=== PATIENT | male | born 1960 | race Caucasian/White ===

== ENCOUNTER → 2017-07-10 | Outpatient (CLI) | payer BC ==
--- NOTE | 2017-07-10 15:41 | US ---
EXAMINATION TYPE: US thyroid st tissue head/neck DATE OF EXAM: 07/10/2017 COMPARISON: 07/14/2016 CLINICAL HISTORY: Nodule E04.1. GLAND SIZE: Right Lobe: 5.7 x 3.1 x 2.9 cm Overall Parenchyma: homogenous Left Lobe: 4.4 x 1.6 x 1.7 cm Overall Parenchyma: homogeneous Isthmus Thickness: 0.4 cm NODULES RIGHT: # of nodules measured on right: 1 1. 4.0 X 2.3 x 3.0 cm mixed nodule at the mid pole with well-defined margins. This nodule is wider than tall and shows intranodular vascularity. Prior size: 3.8 x 2.4 x 2.5 cm LEFT: # of nodules measured on left: 0 ISTHMUS: # of nodules measured in the isthmus: 0 Bilateral neck scanned, no evidence of lymphadenopathy. IMPRESSION: Minimal growth of a complex vascular 4.0 cm right thyroid nodule for which percutaneous biopsy with f ine-needle aspiration is recommended if not previously performed.
== END | disposition home or self-care (01) ==
LOC: RADUSWWP 14:48
PROVIDERS: ATTEND Family Medicine
DX: E04.1 Nontoxic single thyroid nodule (principal)
CPT/HCPCS: 76536

== ENCOUNTER → 2018-04-20 | Outpatient (CLI) | payer BC ==
--- NOTE | 2018-04-20 15:41 | NM ---
EXAMINATION TYPE: NM bone scan whole body DATE OF EXAM: 04/20/2018 COMPARISON: NONE HISTORY: Prostate carcinoma Delayed whole-body scanning was performed following the injection of 21.2 mCi Tc 99m MDP. Images acq uired 3.25 hours post injection. FINDINGS: Soft tissue uptake is normal. There is a mild spinal curvature in the lumbar spine. Uptake within the feet, knees, wrists, shoulders is likely degenerative. Small focus of uptake present at the ischial tuberosity on the right. IMPRESSION: Mild scoliosis. Findings felt more likely to be degenerative. Uptake at the ischial tuberosity could be due to muscle strain or partial tear.
== END | disposition home or self-care (01) ==
LOC: RADNMMAIN 11:37
PROVIDERS: ATTEND Urology
DX: C61 Malignant neoplasm of prostate (principal); M41.86 Other forms of scoliosis, lumbar region; Z88.8 Allergy status to other drugs, medicaments and biological substances
CPT/HCPCS: 78306; A9503

== ENCOUNTER → 2018-04-29 | Outpatient (CLI) | payer BC ==
[2018-04-29 11:56] LABS: Basophils # (A) 0.1 k/uL (0-0.2); Basophils % (A) 1 %; Eosinophils # (A) 0.2 k/uL (0-0.7); Eosinophils % (A) 2 %; HCT 45.5 % (39.0-53.0); HGB 15.5 gm/dL (13.0-17.5); Lymphocytes # (A) 1.5 k/uL (1.0-4.8); Lymphocytes % (A) 22 %; MCH 30.9 pg (25.0-35.0); MCHC 34.1 g/dL (31.0-37.0); MCV 90.6 fL (80.0-100.0); Mean Platelet Volume 7.1; Monocytes # (A) 0.6 k/uL (0-1.0); Monocytes % (A) 8 %; Neutrophils # (A) 4.5 k/uL (1.3-7.7); Neutrophils % (A) 64 %; Platelet Count 211 k/uL (150-450); RBC 5.02 m/uL (4.30-5.90); RDW 13.2 % (11.5-15.5)
[2018-04-29 12:08] LABS: Anion Gap 11 mmol/L; Blood Urea Nitrogen 19 mg/dL (9-20); Calcium 9.8 mg/dL (8.4-10.2); Carbon Dioxide 24 mmol/L (22-30); Chloride 106 mmol/L (98-107); Glucose 106 mg/dL (74-99); Potassium 4.7 mmol/L (3.5-5.1); Sodium 141 mmol/L (137-145)
== END | disposition home or self-care (01) ==
LOC: LABPAT 10:50
PROVIDERS: ATTEND Urology
DX: Z01.818 Encounter for other preprocedural examination (principal); C61 Malignant neoplasm of prostate; E78.00 Pure hypercholesterolemia, unspecified; R35.0 Frequency of micturition; R53.83 Other fatigue; Z01.812 Encounter for preprocedural laboratory examination
CPT/HCPCS: 80048; 85025; 87086; 93005

== ENCOUNTER 2018-05-07 05:49 | Observation (INO) | payer BC ==
[2018-05-03 09:59] VITALS: BMI 25.0
[~2018-05-07 05:49] MED LIST: DEXAMETHASONE SOD PHOSPHATE 10 MG/ML 1 ML VIAL IV ONE; HEPARIN SODIUM,PORCINE 5,000 UNIT/ML 1 ML VIAL SQ ONE; HYDROmorphone 0.5 MG/0.5 ML SYRINGE IVP PRN; MIDAZOLAM 2 MG/2 ML VIAL IV PRN; ONDANSETRON 4 MG/2 ML VIAL IVP ONE; ceFAZolin IN SWFI 2 GM/20 ML SYRINGE IVP ONE; fentaNYL (PF) 50 MCG/ML 2 ML AMP IV PRN
--- NOTE | 2018-05-07 06:25 | P.GSHP ---
History of Present Illness H&P Date: 05/07/18 Chief Complaint: Prostate Cancer The patient is a 57 year old white male with a rising PSA level, most recently 6.3. He underwent a prostate ultrasound with biopsies, revealing Kashif 6 and 7 (3+4) adenocarcinoma in 5 of 12 biopsies. Prostate volume is 40 cc. A bone scan was negative. Alternative treatment options were reviewed, and he has elected to undergo a robotic prostatectomy. He reports mile ED, requiring the use of Cialis. He also reports mild voiding symptoms. - Constitutional Constitutional: Reports chills, Reports chronic headaches, Reports fever - Genitourinary (Male) Genitourinary: Reports erectile dysfunction, Reports urinary frequency - Musculoskeletal Musculoskeletal: Reports low back pain Past Medical History Past Medical History: Cancer, Thyroid Disorder Additional Past Medical History / Comment(s): prostate CA, thyroid nodule rt side, states being watched by at [facility] History of Any Multi-Drug Resistant Organisms: None Reported Past Surgical History: Orthopedic Surgery Additional Past Surgical History / Comment(s): rt knee arthroscopy, colonoscopy , thyroid bx, cosmetic ear sx as child. Past Anesthesia/Blood Transfusion Reactions: No Reported Reaction Smoking Status: Former smoker - Past Family History Mother Family Medical History: Cancer Sister(s) Family Medical History: Cancer Medications and Allergies Home Medications Medication Instructions Recorded Confirmed Type ALPRAZolam [Xanax] 0.5 mg PO DAILY PRN 05/03/18 05/03/18 History Tadalafil [Cialis] 5 mg PO DAILY 05/03/18 05/03/18 History Allergies Allergy/AdvReac Type Severity Reaction Status Date / Time lodine Allergy Itching Uncoded 05/07/18 06:17 Surgical - Exam - General well developed, well nourished, no distress - Neck no masses, trachea midline - Respiratory normal respiratory effort, clear to auscultation - Cardiovascular Rhythm: regular Abnormal Heart Sounds: no systolic murmur, no diastolic murmur - Abdomen Abdomen: soft, non tender, no guarding, no rigid, no rebound - Genitourinary normal penis with no external lesions, testicles non-tender - Rectum Prostate moderately enlarged, smooth. Rectum: normal sphincter tone, no masses - Musculoskeletal normal gait, normal posture - Psychiatric oriented to time, oriented to person, oriented to place, speech is normal, memory intact Assessment and Plan (1) Malignant neoplasm of prostate Current Visit: Yes Status: Acute Code(s): C61 - MALIGNANT NEOPLASM OF PROSTATE SNOMED Code(s): 212546006 Plan: Radical Prostatectomy. The procedure has been reviewed in detail with the patient. I explained that this is a procedure of choice in a healthy male under 70 years of age or in any person who has an expected longevity of greater than 10 years. I explained in great detail the potential risks, which include anesthesia, bleeding, and infection. In addition, I went into great detail concerning the two common complications, ie impotence and urinary incontinence. I explained that other complications include intestinal injury (which may require a colostomy), ureteral injury, swelling of the penis post-operatively, bladder neck contracture, urethral stricture, lymphocele, post-operative ileus, thrombophlebitis, wound separation, and possible urinary fistula. The patient has also been advised of the possibility of treatment failure, and the possible need for adjuvant therapy. Bilateral pelvic lymph node dissections will be performed. He is aware that based upon his biopsy results, he is a suboptimal candidate for neurovascular bundle preservation. A partial nerve-sparing procedure will be performed, but he understands the likelihood of postoperative erectile dysfunction. He has elected to undergo an RALP rather than an open radical retropubic prostatectomy. He understands the possible need to convert this to an open procedure.
[2018-05-07] MEDS: LIDOCAINE 1% 20 ML VIAL (10MG/ML) FOR IV START INTRADERMA PRN ×2 (06:48→06:51)
[2018-05-07] MEDS: LACTATED RINGERS 1,000 ML IV SCH (06:49)
[2018-05-07] MEDS ORDERED: PROPOFOL 10 MG/ML 20 ML VIAL IV ONE (07:42)
[2018-05-07] MEDS ORDERED: NEOSTIGMINE 1 MG/ML 10 ML VIAL ONE (07:42)
[2018-05-07] MEDS ORDERED: SUCCINYLCHOLINE CHLORIDE 100 MG/5 ML SYR IV ONE (07:42)
[2018-05-07] MEDS ORDERED: GLYCOPYRROLATE 0.2 MG/ML 2 ML VIAL ONE (07:42)
[2018-05-07] MEDS ORDERED: fentaNYL (PF) 50 MCG/ML 2 ML AMP ONE (07:42)
[2018-05-07] MEDS ORDERED: ePHEDrine SULFATE/0.9% NACL/PF 50 MG/5 ML SYRINGE IV ONE (07:42)
[2018-05-07] MEDS ORDERED: HYDROmorphone (PF) 1 MG/ML ONE (07:42)
[2018-05-07] MEDS ORDERED: MIDAZOLAM 2 MG/2 ML VIAL ONE (07:42)
[2018-05-07] MEDS ORDERED: ROCURONIUM BROMIDE 10 MG/ML 10 ML VIAL IV ONE (07:42)
[2018-05-07] MEDS ORDERED: BUPIVACAINE (PF) 0.5% 30 ML VIAL SQ ONE ×2 (08:10→12:12)
[2018-05-07] MEDS ORDERED: LACTATED RINGERS 1,000 ML IV ONE (11:30)
[2018-05-07] MEDS ORDERED: ONDANSETRON 4 MG/2 ML VIAL IVP PRN (12:38)
[2018-05-07] MEDS ORDERED: ACETAMINOPHEN TAB 325 MG TAB PO PRN (12:38)
[2018-05-07] MEDS ORDERED: ALPRAZolam 0.5 MG TAB PO PRN (12:38)
[2018-05-07] MEDS ORDERED: KETOROLAC 30 MG/ML 1 ML VIAL IVP PRN (12:38)
[2018-05-07] MEDS ORDERED: MEPERIDINE 50 MG/ML SYRINGE IVP ONE (12:40)
--- NOTE | 2018-05-07 13:00 | P.OP ---
Date of Procedure: 05/07/18 Preoperative Diagnosis: Adenocarcinoma of the Prostate, Clinical Stage [id number] Postoperative Diagnosis: Same Procedure(s) Performed: Robotic-Assisted Laparoscopic Prostatectomy (RALP) with Bilateral Pelvic Lymphadenectomy Anesthesia: CASSI Surgeon: Mayo Mukherjee Seamer Elastic Band #1: Tamera Galdamez Estimated Blood Loss (ml): 50 IV fluids (ml): 1,500 Pathology: other (Prostate, seminal vesicles, bilateral pelvic lymph nodes) Condition: stable Disposition: PACU Indications for Procedure: The patient is a 57 year old white male with a rising PSA level, most recently 6.3. He underwent a prostate ultrasound with biopsies, revealing Kashif 6 and 7 (3+4) adenocarcinoma in 5 of 12 biopsies. Prostate volume is 40 cc. A bone scan was negative. Alternative treatment options were reviewed, and he has elected to undergo a robotic prostatectomy with PLND. Operative Findings: No evidence of extraprostatic disease. Description of Procedure: The patient was taken in the operating room and placed in the dorsal lithotomy position, with his legs supported in Gil stirrups. He was carefully positioned on a beanbag for stability. The abdomen and external genitalia were prepped and draped sterilely. A Dash catheter was inserted. The Veress needle was passed through the anterior abdominal wall immediately cephalad to the umbilicus, and insufflation was performed to a pressure of 20 mm Hg. Once insufflation was performed, the Veress needle was removed and a supraumbilical incision was made, through which a 12 mm camera port was placed. Under camera guidance, 3 8 mm robotic ports were placed, 2 on the left and one on the right. An additional 12 mm port was placed on the right lateral side for use as an physician's assistant port. A 5 mm port was placed to the right of the camera port for suction. The patient was placed in Trendelenburg position, and docking was then performed to the da Yobani system utilizing a 4-arm approach. The abdomen was examined. The sigmoid colon was mobilized out of the pelvis. The peritoneum was incised lateral to the medial umbilical ligaments bilaterally , exposing the pubis. The peritoneum was then incised across the midline, allowing the bladder flap to be taken down. The endopelvic fascia was opened bilaterally, and muscular attachments from the urogenital diaphragm were swept away from the prostate. Bilateral pelvic lymphadenectomies were performed in the standard fashion. The peritoneal incisions were extended in a cephalad direction, and the vas deferens were divided bilaterally. Margins of dissection were the bifurcation of the iliac vessels proximally, the circumflex iliac vein distally, the external iliac artery laterally, and the obturator nerve medially. A combination of sharp and blunt dissection was used. Care was taken to avoid any neurovascular injury, and the use of monopolar electrocautery was avoided immediately adjacent to neurovascular structures. No enlarged lymph nodes were encountered. There were no complications. The vesical neck was incised transversely, down to the lumen. The Dash catheter was brought out through the anterior vesical neck incision and was used for traction. The posterior aspect of the vesical neck was incised, such that the full-thickness of the vesical neck was divided. The bladder wall was noted to be very thick. The anterior layer of the Denonvilliers fascia was incised, exposing the vas deferens. Each were isolated and divided. Next, each of the seminal vesicles were dissected away from adjacent tissues, and vascular attachments were cauterized and divided. The posterior leaf of Denonvilliers fascia was incised transversely, allowing entry into the plane between the prostate and rectum. With lateral spreading, this plane was developed down to the apex. This exposed the lateral vascular pedicles bilaterally. These were clipped and divided in an antegrade fashion, down to the apex. The use of electrocautery was avoided to prevent thermal damage to the nerves. However, the plane of dissection was not immediately adjacent to the prostate, as only a partial nerve sparing procedure was performed. The remaining apical attachments were swept away from the prostate. The dorsal venous complex was incised, as well as periurethral tissue. At this point, only the urethra remained intact. This was transected immediately distal to the prostatic apex using cold scissors. The specimen was placed within a specimen bag. The dorsal venous complex was sutured using a V-Loc suture in a running fashion. A second V-Loc suture was then used to place the Miles stitch, incorporating the rhabdosphincter and the edge of Denonvilliers fascia. This allowed the bladder to be taken down to the urethra, leaving the vesical neck immediately adjacent to the urethra. The vesicourethral anastomosis was then performed using a V-Loc suture in a running fashion. After completing the anastomosis, an 18-Persian Dash catheter was placed and approximately 150 mL of 0.9 normal saline were instilled into the bladder. No extravasation of irrigant from the vesicourethral anastomosis was noted. A small amount of oozing was noted from the vascular pedicles, so Surgicel was placed bilaterally. The patient was returned to the supine position. Undocking was performed, and the specimen bag sutures were passed through the camera port. After removing all the ports and allowing all of the CO2 to be released from the peritoneal cavity, the camera port incision was enlarged to allow removal of the surgical specimen. The fascia of this incision was then closed using 0 Vicryl suture in an interrupted [id number] fashion. Each of the skin incisions were then closed using 4-0 Monocryl suture in a subcuticular fashion. Marcaine was injected at each of the incision sites. Dermabond was applied to each incision. The Dash catheter was connected to gravity drainage. All sponge and needle counts were correct. The patient tolerated the procedure well was taken to the recovery room in stable condition.
[2018-05-07] MEDS: DEXTROSE 5%-0.45% NACL 1,000 ML IV SCH ×2 (16:57→20:39)
[2018-05-07] MEDS: HYDROmorphone 1 MG/ML 1 ML SYRINGE IVP PRN ×2 (16:58→20:44)
[2018-05-07] MEDS ORDERED: ARTIFICIAL TEARS-HYPROMELLOSE DROPS 15 ML BTL LEFT EYE PRN (17:14)
[2018-05-07] MEDS: HEPARIN SODIUM,PORCINE 5,000 UNIT/ML 1 ML VIAL SQ SCH (20:39)
[2018-05-08] MEDS: HYDROmorphone 1 MG/ML 1 ML SYRINGE IVP PRN ×4 (02:37→14:56)
[2018-05-08] MEDS: DEXTROSE 5%-0.45% NACL 1,000 ML IV SCH ×2 (05:52→10:56)
[2018-05-08] MEDS: HEPARIN SODIUM,PORCINE 5,000 UNIT/ML 1 ML VIAL SQ SCH (09:23)
[2018-05-08 09:52] VITALS: BP 124/73; PULSE 79; RESP 12; TEMP 98.4
--- NOTE | 2018-05-08 12:52 | P.DS ---
Providers Date of admission: 05/07/18 20:54 Attending physician: Mayo Mukherjee Primary care physician: [facility] Course: The patient was admitted for robotic-assisted radical prostatectomy by Dr. mukherjee. He did well overnight. His urine is cleared. His abdomen is soft. He is ambulated. He is tolerating regular diet. His vital signs are stable. He is ready for discharge home. He'll be discharged home care of family regular diet limited activity. He'll follow-up in the office on 04/16 for catheter removal. Postoperative instructions been given. Patient Condition at Discharge: Good Plan - Discharge Summary Discharge Rx Participant: Yes New Discharge Prescriptions: New Ciprofloxacin HCl [Cipro] 250 mg PO Q12HR #6 tablet Hydrocodone/Acetaminophen [Martell 5-325] 1 - 2 each PO Q4HR PRN #15 tab PRN Reason: Pain No Action ALPRAZolam [Xanax] 0.5 mg PO DAILY PRN PRN Reason: Anxiety Tadalafil [Cialis] 5 mg PO DAILY Discharge Medication List ALPRAZolam [Xanax] 0.5 mg PO DAILY PRN 05/03/18 [History] Tadalafil [Cialis] 5 mg PO DAILY 05/03/18 [History] Ciprofloxacin HCl [Cipro] 250 mg PO Q12HR #6 tablet 05/07/18 [Rx] Hydrocodone/Acetaminophen [Martell 5-325] 1 - 2 each PO Q4HR PRN #15 tab 05/07/18 [Rx] Follow up Appointment(s)/Referral(s): Mayo Mukherjee MD [STAFF PHYSICIAN] - 05/14/18 Activity/Diet/Wound Care/Special Instructions: Diet as tolerated. Okay to shower. No lifting, driving, or strenuous activity. Begin taking ciprofloxacin on 05/13/2018. Discharge Disposition: HOME SELF-CARE
== END 2018-05-08 15:20 | disposition home or self-care (01) ==
LOC: OR 05:49 → 3SUR 12:16 → OR 20:54 → 3SUR 20:54
PROVIDERS: ADMIT Urology; ATTEND Urology
DX: C61 Malignant neoplasm of prostate (principal); N52.9 Male erectile dysfunction, unspecified; E04.1 Nontoxic single thyroid nodule; G89.29 Other chronic pain; R51 Headache; M54.5 Low back pain; R35.0 Frequency of micturition; Z79.899 Other long term (current) drug therapy; Z91.048 Other nonmedicinal substance allergy status; Z87.891 Personal history of nicotine dependence; Z80.9 Family history of malignant neoplasm, unspecified
CPT/HCPCS: 55866; 38571; 86900; 86901; 86850; 88307; 88309; G0378 ×2; J2250; J1644 ×2; J1100; J2710; J2175; J2405; J3010; J1885; J1170 ×2; J0330; J2704; J0690

== ENCOUNTER → 2018-06-16 | Outpatient (CLI) | payer BC | END | disposition home or self-care (01) | LOC: LABWHC1 14:27 | PROVIDERS: ATTEND Urology | DX: C61 Malignant neoplasm of prostate (principal) | CPT/HCPCS: 36415; 84153 ==

== ENCOUNTER → 2018-07-22 | Outpatient (CLI) | payer BC | LOC: LABWHC1 13:56 | PROVIDERS: ATTEND Urology | DX: C61 Malignant neoplasm of prostate (principal) | CPT/HCPCS: 36415; 84153 ==

== ENCOUNTER 2018-09-17 10:54 | Day surgery (SDC) | payer BC ==
[2018-09-16 08:24] VITALS: BMI 25.0
[~2018-09-17 10:54] MED LIST changes: -DEXAMETHASONE SOD PHOSPHATE 10 MG/ML 1 ML VIAL IV ONE; -HEPARIN SODIUM,PORCINE 5,000 UNIT/ML 1 ML VIAL SQ ONE; -HYDROmorphone 0.5 MG/0.5 ML SYRINGE IVP PRN; +LACTATED RINGERS 1,000 ML IV SCH; -MIDAZOLAM 2 MG/2 ML VIAL IV PRN; -ONDANSETRON 4 MG/2 ML VIAL IVP ONE; -ceFAZolin IN SWFI 2 GM/20 ML SYRINGE IVP ONE; -fentaNYL (PF) 50 MCG/ML 2 ML AMP IV PRN
[2018-09-17 11:15] VITALS: TEMP 98
[2018-09-17] MEDS ORDERED: LIDOCAINE 1% 20 ML VIAL (10MG/ML) FOR IV START INTRADERMA ONE (11:23)
[2018-09-17] MEDS ORDERED: PROPOFOL 10 MG/ML 20 ML VIAL IV ONE (12:39)
--- NOTE | 2018-09-17 13:00 | P.PCN ---
Date of Procedure: 09/17/18 Procedure(s) Performed: BRIEF HISTORY: Patient is a 58-year-old pleasant white male scheduled for an elective colonoscopy as a part of evaluation of prior history of colon polyps. Last upper endoscopy was 5 years ago. PROCEDURE PERFORMED: Colonoscopy. PREOPERATIVE DIAGNOSIS:History of colon polyps. IV sedation per Anesthesia. PROCEDURE: After informed consent was obtained, the patient, was brought into the endoscopy unit. IV sedation was administered by Anesthesia under continuous monitoring. Digital rectal examination was normal. Initially the Olympus CF- 160 flexible video colonoscope was then inserted in the rectum, gradually advanced into the cecum without any difficulty. Careful examination was performed as the scope was gradually being withdrawn. Ileocecal valve and the appendiceal orifice were visualized and appeared normal. Prep was excellent. Mucosa of the cecum, ascending colon, transverse colon, descending colon, sigmoid colon, and rectum appeared normal. Retroflexion was performed in the rectum and small internal hemorrhoids were seen. The patient tolerated the procedure well. IMPRESSION: Normal-appearing colon from rectum to cecum with no evidence of colorectal neoplasia. RECOMMENDATIONS: Findings of this examination were discussed with the patient as well as his family. He was advised to have a repeat surveillance colonoscopy in 5 years from now because of the prior history of colon polyps..
[2018-09-17 13:10] VITALS: RESP 16
[2018-09-17 13:23] VITALS: BP 132/78; PULSE 69
== END 2018-09-17 14:00 | disposition home or self-care (01) ==
LOC: ORWHC2ENDO 10:54
PROVIDERS: ATTEND Internal Medicine Gastroenterology
DX: Z12.11 Encounter for screening for malignant neoplasm of colon (principal); K64.8 Other hemorrhoids; Z86.010 Personal history of colon polyps; Z79.899 Other long term (current) drug therapy; Z85.46 Personal history of malignant neoplasm of prostate
CPT/HCPCS: J2704; G0105

== ENCOUNTER → 2018-10-22 | Outpatient (CLI) | payer BC | END | disposition home or self-care (01) | LOC: LABWHC1 16:13 | PROVIDERS: ATTEND Urology | DX: C61 Malignant neoplasm of prostate (principal) | CPT/HCPCS: 36415; 84153 ==

== ENCOUNTER → 2019-04-21 | Outpatient (CLI) | payer BC | END | disposition home or self-care (01) | LOC: LABWHC1 16:07 | PROVIDERS: ATTEND Urology | DX: C61 Malignant neoplasm of prostate (principal) | CPT/HCPCS: 36415; 84153 ==

== ENCOUNTER → 2019-08-15 | Outpatient (CLI) | payer BC | END | disposition home or self-care (01) | LOC: LABWHC1 17:00 | PROVIDERS: ATTEND Urology | DX: C61 Malignant neoplasm of prostate (principal) | CPT/HCPCS: 36415; 84153 ==

== ENCOUNTER → 2020-04-09 | Outpatient (CLI) | payer BC | END | disposition home or self-care (01) | LOC: LABWHC1 09:17 | PROVIDERS: ATTEND Urology | DX: C61 Malignant neoplasm of prostate (principal) | CPT/HCPCS: 36415; 84153 ==

== ENCOUNTER → 2020-12-07 | Outpatient (CLI) | payer OTHER ==
[2020-12-07 20:51] LABS: T4, Free (Free Thyroxine) 1.1 ng/dL (0.80-1.80)
[2020-12-07 21:17] LABS: Prostate Specific Antigen 0.3 ng/mL (0.0-4.5)
== END | disposition home or self-care (01) ==
LOC: LABWHC1 10:53
PROVIDERS: ATTEND Family Medicine
DX: E55.9 Vitamin D deficiency, unspecified (principal); Z90.09 Acquired absence of other part of head and neck; Z85.46 Personal history of malignant neoplasm of prostate
CPT/HCPCS: 36415; 82306; 84153; 84439; 84443

== ENCOUNTER → 2021-03-29 | Outpatient (CLI) | payer OTHER | END | disposition home or self-care (01) | LOC: LABWHC1 08:46 | PROVIDERS: ATTEND Urology | DX: C61 Malignant neoplasm of prostate (principal) | CPT/HCPCS: 36415; 84153 ==

== ENCOUNTER → 2022-06-19 | Outpatient (CLI) | payer OTHER | END | disposition home or self-care (01) | LOC: LABWHC1 11:26 | PROVIDERS: ATTEND Urology | DX: C61 Malignant neoplasm of prostate (principal) | CPT/HCPCS: 36415; 84153 ==

== ENCOUNTER → 2022-09-23 | Outpatient (CLI) | payer OTHER ==
[2022-09-23 10:56] LABS: Appearance,Urine Clear (Clear); Bilirubin,Urine Negative (Negative); Blood,Urine Negative (Negative); Color,Urine Light Yellow; Glucose,Urine (UA) Negative (Negative); Ketones,Urine Negative (Negative); Leukocyte Esterase,Urine Negative (Negative); Nitrite,Urine Negative (Negative); PH, Urine 5.5 (5.0-8.0); Protein,Urine Negative (Negative); Specific Gravity,Urine 1.006 (1.001-1.035); Urobilinogen,Urine <2.0 mg/dL (<2.0)
[2022-09-23 14:38] LABS: HCT 45.3 % (39.6-50.0); HGB 15.8 g/dL (13.0-17.0); MCHC 34.9 g/dL (32.0-37.0); MCV 91.9 fL (80.0-97.0); Mean Platelet Volume 10.7 fL (9.5-12.2); NRBC Per 100 WBC 0 /100 WBCS (0.0-0.0); Platelet Count 249 X 10*3/uL (140-440); RBC 4.93 X 10*6/uL (4.40-5.60); RDW 13.1 % (11.5-14.5); WBC 5.99 X 10*3/uL (4.50-10.00)
[2022-09-23 15:10] LABS: ALT 27 U/L (10-49); AST 26 U/L (14-35); African American GFR (CKD) 93.1 (60.0-200.0); Albumin 4.6 g/dL (3.8-4.9); Albumin/Globulin Ratio 1.77 (1.60-3.17); Alkaline Phosphatase 82 U/L (41-126); Calcium 9.7 mg/dL (8.7-10.3); Carbon Dioxide 26.3 mmol/L (20.0-27.5); Chloride 101 mmol/L (96-109); Chol/HDL Ratio 3.11 Ratio; Globulin 2.6 g/dL (1.6-3.3); Glucose 104 mg/dL (70-110); LDL Cholesterol,Calculated 120.9 mg/dL (0.0-131.0); Non-African American GFR(CKD) 80.3 (60.0-200.0); Potassium 4.9 mmol/L (3.5-5.5); Sodium 139 mmol/L (135-145); Total Protein 7.2 g/dL (6.2-8.2)
== END | disposition home or self-care (01) ==
LOC: LABWHC1 08:33
PROVIDERS: ATTEND Family Medicine
DX: Z00.00 Encounter for general adult medical examination without abnormal findings (principal); F10.10 Alcohol abuse, uncomplicated; R73.03 Prediabetes
CPT/HCPCS: 36415; 80053; 80061; 81003; 84153; 84425; 84439; 84443; 85027

== ENCOUNTER → 2022-10-23 | Outpatient (CLI) | payer OTHER ==
--- NOTE | 2022-10-23 14:24 | CTL ---
EXAMINATION TYPE: CT Low Dose Lung DATE OF EXAM ORDERED: 10/23/2022 HISTORY: Long-term tobacco use. Lung cancer screening CT DLP: 111.[address] CTDI: 2.8 mGy Automated exposure control for dose reduction was used. SCREENING VISIT: Baseline COMPARISON: None TECHNIQUE: Low dose computed tomography scan was performed through the chest at 1 mm thick sections a nd reconstructed images in multiple planes at 1 mm and [address] DIAGNOSTIC QUALITY: Satisfactory FINDINGS: LUNG NODULES: None. LUNGS: COPD: Severity: None Fibrosis: Severity: Mild biapical Lymph nodes: None Other findings: None RIGHT PLEURAL SPACE: Effusion: None Calcification: None Thickening: None Pneumothorax: None LEFT PLEURAL SPACE: Effusion: None Calcification: None Thickening: None Pneumothorax: None HEART: Heart Size: Normal Coronary Calcification: At least moderate Pericardial Effusion: None OTHER FINDINGS: Upper abdomen: None Bony thorax: Moderate multilevel spurring in the mid thoracic spine. Supraclavicular region: None Other: None IMPRESSION: No suspicious nodules. CT LUNG RAD AND CT CHEST RECOMMENDATION: Lung-Rad 1 Negative: Continue annual screening with LDCT in 12 months. S Modifier (other clinically significant findings): None
== END | disposition home or self-care (01) ==
LOC: RADCTMAIN 13:03
PROVIDERS: ATTEND Family Medicine
DX: Z12.2 Encounter for screening for malignant neoplasm of respiratory organs (principal); Z87.891 Personal history of nicotine dependence
CPT/HCPCS: 71271

== ENCOUNTER → 2023-03-30 | Outpatient (CLI) | payer OTHER | END | disposition home or self-care (01) | LOC: LABWHC1 08:25 | PROVIDERS: ATTEND Family Medicine | DX: R73.03 Prediabetes (principal); Z85.46 Personal history of malignant neoplasm of prostate | CPT/HCPCS: 36415; 83036; 84153 ==

== ENCOUNTER → 2023-07-30 | Outpatient (CLI) | payer OTHER ==
[2023-07-30 21:27] LABS: Appearance,Urine Clear (Clear); Bilirubin,Urine Negative (Negative); Blood,Urine Negative (Negative); Color,Urine Yellow (Yellow); Ketones,Urine Negative (Negative); Nitrite,Urine Negative (Negative); PH, Urine 5.5; Specific Gravity,Urine 1.008 (1.001-1.030); Urobilinogen,Urine 0.2 E.U./DL
[2023-07-30 22:32] LABS: HCT 44.4 % (39.6-50.0); HGB 14.6 d/dL (13.0-17.0); MCH 30.9 pg (27.0-32.0); MCHC 32.9 d/dL (32.0-37.0); MCV 93.9 FL (80.0-97.0); Mean Platelet Volume 11.3 FL (9.5-12.2); NRBC Per 100 WBC 0 X 10*3/uL (0.00-0.01); Platelet Count 230 X 10*3/uL (140-440); RBC 4.73 X 10*6/uL (4.40-5.60); RDW 12.9 % (11.5-14.5)
[2023-07-30 23:47] LABS: ALT 35 U/L (10-49); AST 31 U/L (14-35); Albumin 4.7 d/dL (3.8-4.9); Albumin/Globulin Ratio 1.62 Ratio (1.60-3.17); Alkaline Phosphatase 82 U/L (41-126); BUN/Creat Ratio 13.64 Ratio (12.00-20.00); Calcium 10.2 mg/dL (8.7-10.3); Carbon Dioxide 26.6 mmol/L (21.6-31.8); Chloride 102 mmol/L (96-109); Globulin 2.9 d/dL (1.6-3.3); Glucose 135 mg/dL (70-110); Prostate Specific Antigen 0.12 ng/mL (0.000-4.500); Sodium 142 mmol/L (135-145); Total Bilirubin 0.5 mg/dL (0.3-1.2); Total Protein 7.6 d/dL (6.2-8.2)
== END | disposition home or self-care (01) ==
LOC: LABWHC1 14:57
PROVIDERS: ATTEND Family Medicine
DX: Z00.00 Encounter for general adult medical examination without abnormal findings (principal); R73.03 Prediabetes
CPT/HCPCS: 36415; 80053; 81003; 82306; 83036; 84153; 85027

== ENCOUNTER 2023-09-22 10:21 | Day surgery (SDC) | payer OTHER ==
[2023-09-18 14:39] VITALS: BMI 25.7
[~2023-09-22 10:21] MED LIST changes: +LIDOCAINE 1% (10MG/ML) FOR IV START INTRADERMA PRN
[2023-09-22 11:06] VITALS: TEMP 97.8
[2023-09-22] MEDS ORDERED: PROPOFOL 10 MG/ML 20 ML VIAL IV ONE (11:28)
--- NOTE | 2023-09-22 11:45 | P.PCN ---
Date of Procedure: 09/22/23 Procedure(s) Performed: BRIEF HISTORY: Patient is a 63-year-old pleasant white male scheduled for an elective colonoscopy as a part of evaluation of history of colon polyps. Last colonoscopy was 5 years ago. PROCEDURE PERFORMED: Colonoscopy. PREOPERATIVE DIAGNOSIS: History of colon polyps. IV sedation per Anesthesia. PROCEDURE: After informed consent was obtained, the patient, was brought into the endoscopy unit. IV sedation was administered by Anesthesia under continuous monitoring. Digital rectal examination was normal. Initially the Olympus CF-160 flexible video colonoscope was then inserted in the rectum, gradually advanced into the cecum without any difficulty. Careful examination was performed as the scope was gradually being withdrawn. Ileocecal valve and the appendiceal orifice were visualized and appeared normal. Prep was fair.. Mucosa of the cecum, ascending colon, transverse colon, descending colon, sigmoid colon, and rectum appeared normal. Scattered sigmoid diverticulosis.. Retroflexion was performed in the rectum and no lesions were seen. The patient tolerated the procedure well. IMPRESSION: Normal-appearing colon from rectum to cecum with no evidence of colorectal neoplasia Scattered sigmoid diverticulosis. RECOMMENDATIONS: Findings of this examination were discussed with the patient as well as the his family. He was advised to have a repeat screening colonoscopy in 10 years
[2023-09-22 11:56] VITALS: RESP 18
[2023-09-22 12:21] VITALS: BP 150/88; PULSE 61
== END 2023-09-22 12:31 | disposition home or self-care (01) ==
LOC: ORWHC2ENDO 10:21
PROVIDERS: ATTEND Internal Medicine Gastroenterology
DX: Z12.11 Encounter for screening for malignant neoplasm of colon (principal); K57.30 Diverticulosis of large intestine without perforation or abscess without bleeding; I10 Essential (primary) hypertension; E78.5 Hyperlipidemia, unspecified; F17.200 Nicotine dependence, unspecified, uncomplicated; Z79.899 Other long term (current) drug therapy; Z86.010 Personal history of colon polyps
CPT/HCPCS: 45378; J2704

== ENCOUNTER → 2023-11-26 | Outpatient (CLI) | payer OTHER | END | disposition home or self-care (01) | LOC: LABWHC1 11:45 | PROVIDERS: ATTEND Family Medicine | DX: Z85.46 Personal history of malignant neoplasm of prostate (principal) | CPT/HCPCS: 36415; 84153 ==

== ENCOUNTER → 2023-11-26 | Outpatient (CLI) | payer OTHER ==
--- NOTE | 2023-11-26 20:13 | CTL ---
EXAMINATION TYPE: CT Low Dose Lung DATE OF EXAM ORDERED: 11/26/2023 HISTORY: February 23, 2006. Lung cancer screening CT DLP: 102.[address] CTDI: 2.5 mGy Automated exposure control for dose reduction was used. SCREENING VISIT: Subsequent COMPARISON: 10/23/2022 TECHNIQUE: Low dose computed tomography scan was performed through the chest at 1 mm thick sections a nd reconstructed images in the coronal plane at [address] DIAGNOSTIC QUALITY: Satisfactory FINDINGS: LUNG NODULES: None. LUNGS: COPD: Severity: None Fibrosis: Severity: None Lymph nodes: No enlarged lymphadenopathy. Small scattered lymph nodes are within the mediastinum Other findings: History of prior right lobe thyroidectomy RIGHT PLEURAL SPACE: Effusion: None Calcification: None Thickening: None Pneumothorax: None LEFT PLEURAL SPACE: Effusion: None Calcification: None Thickening: None Pneumothorax: None HEART: Heart Size: Normal Coronary calcification: Mild Pericardial effusion: None OTHER FINDINGS: Upper abdomen: Normal Bony thorax: Normal Supraclavicular region: Normal Other: Ascending thoracic aorta at the level the main pulmonary artery measures 3.4 cm. The main pul monary artery at the bifurcation measures 2.7 cm. IMPRESSION: 1 no suspicious changes for primary or metastatic neoplasm. FOLLOW UP CT CHEST RECOMMENDATION: Follow-up low-dose CT chest one year CT LUNG RAD: Lung-Rad 1 Negative
== END | disposition home or self-care (01) ==
LOC: RADCTMAIN 11:30
PROVIDERS: ATTEND Family Medicine
DX: Z12.2 Encounter for screening for malignant neoplasm of respiratory organs (principal); R91.8 Other nonspecific abnormal finding of lung field; Z87.891 Personal history of nicotine dependence
CPT/HCPCS: 71271

== ENCOUNTER → 2024-06-15 | Outpatient (CLI) | payer OTHER ==
[2024-06-15 15:52] LABS: ALT 47 U/L (10-49); AST 35 U/L (14-35); Chol/HDL Ratio 3.16 Ratio; LDL Cholesterol,Calculated 92.7 mg/dL (0.0-131.0); Prostate Specific Antigen 0.11 ng/mL (0.000-4.500)
== END | disposition home or self-care (01) ==
LOC: LABWHC1 08:26
PROVIDERS: ATTEND Internal Medicine Cardiovascular Disease
DX: E78.2 Mixed hyperlipidemia (principal); Z85.46 Personal history of malignant neoplasm of prostate
CPT/HCPCS: 36415; 80061; 84153; 84450; 84460

== ENCOUNTER → 2025-02-24 | Outpatient (CLI) | payer OTHER ==
--- NOTE | 2025-02-24 09:39 | CTL ---
EXAMINATION TYPE: CT Low Dose Lung DATE OF EXAM: 02/24/2025 8:25 AM COMPARISON: 11/26/2023. CLINICAL INDICATION: Male, 64 years old with history of Z12.2 SCREENING LUNG CA Z87.891 FORMER SMOKER ; former smoker, quit 9 years ago. smoked 1 PPD x 30years, history of tobacco use. TECHNIQUE: Multiple axial non-contrast scans were obtained from approximately the lung apices through the upper abdomen. Coronal and sagittal reformatted images were obtained. Low dose technique was uti lized. MIP were created on a separate workstation and submitted for review. CT DLP: 74 mGycm, Automated exposure control for dose reduction was used. CT Contrast: Contrast used: None Oral contrast used: None FINDINGS: Lack of intravenous contrast and low dose technique limits the evaluation of the vascular and soft ti ssue structures. LUNGS: No evidence of pulmonary fibrosis. No evidence of focal consolidation, pneumothorax or pleural effusion. Centrilobular emphysema changes. Nodules: RUL: None. RML: None. RLL: None. SUZAN: None. LLL: None. AIRWAY: Patent and unremarkable. HEART: Size within normal limits. Mild coronary artery calcifications present. MEDIASTINUM: No gross evidence of adenopathy. VASCULATURE: No aortic aneurysm. MUSCULOSKELETAL: Mild disc degeneration changes are present throughout the thoracolumbar spine. SOFT TISSUES/LYMPH NODES: Unremarkable. LOWER NECK: No significant findings. UPPER ABDOMEN: No significant findings. IMPRESSION: 1. No clinically significant pulmonary nodules. 2. Mild emphysema. CT LUNG RAD AND CT CHEST RECOMMENDATION: Lung-Rad 1 Negative: Continue annual screening with LDCT in 12 months. S Modifier (other clinically significant findings): None Recommend smoking cessation (if current smoker), or continuation of smoking cessation (if prior smoke r). Annual screening for lung cancer with low-dose computed tomography is recommended in adults ages 55 to 77 years who have a 30 pack-year smoking history and currently smoke or have quit within the pa st 15 years. Screening should be discontinued once a person has not smoked for 15 years or develops a health problem that substantially limits life expectancy or the ability or willingness to have curat nagi lung surgery. Lung rads 2021 [email or web address] [email or web address], , 02/24/2025 9:36 AM
== END | disposition home or self-care (01) ==
LOC: RADCTMAIN 08:04
PROVIDERS: ATTEND Family Medicine
DX: Z12.2 Encounter for screening for malignant neoplasm of respiratory organs (principal); J43.2 Centrilobular emphysema; R91.8 Other nonspecific abnormal finding of lung field; Z87.891 Personal history of nicotine dependence
CPT/HCPCS: 71271

== ENCOUNTER → 2025-02-24 | Outpatient (CLI) | payer OTHER ==
[2025-02-24 15:44] LABS: ALT 52 U/L (10-49); AST 44 U/L (14-35); LDL Cholesterol,Calculated 50.5 mg/dL (0.0-131.0); Prostate Specific Antigen 0.09 ng/mL (0.000-4.500)
== END | disposition home or self-care (01) ==
LOC: LABWHC1 08:29
PROVIDERS: ATTEND Internal Medicine Cardiovascular Disease
DX: E78.2 Mixed hyperlipidemia (principal)
CPT/HCPCS: 36415; 80061; 84153; 84450; 84460